=== PATIENT | female | born 1965 | race Caucasian/White ===

== ENCOUNTER 2021-08-08 18:20 | Emergency (ER) | payer SELFPAY ==
--- NOTE | 2021-08-08 19:19 | RAD REPORT ---
EXAM DESCRIPTION: RAD - Chest Single View - 08/08/2021 7:14 pm CLINICAL HISTORY: COUGH COMPARISON: None TECHNIQUE: AP portable chest image was obtained 08/08/2021 7:14 pm . FINDINGS: Lungs are clear. Heart and vasculature are normal. No measurable pleural effusion and no p neumothorax. No acute bony abnormality seen. No acute aortic findings suspected. IMPRESSION: No acute cardiopulmonary process.
--- NOTE | 2021-08-08 19:20 | RAD REPORT ---
EXAM DESCRIPTION: CT - Head Brain Wo Cont - 08/08/2021 7:07 pm CLINICAL HISTORY: DIZZINESS COMPARISON: No comparisons TECHNIQUE: Axial 5 mm thick images of the head were obtained without IV contrast. All CT scans are performed using dose optimization technique as appropriate and may include automated exposure control or mA/KV adjustment according to patient size. FINDINGS: No intracranial hemorrhage, mass, edema or shift of mid-line structures. No acute infarcti on changes seen. No abnormal extra-axial fluid collections. Ventricles are normal. Mastoid air cells and visualized portions of the paranasal sinuses are clear. No acute bony findings. IMPRESSION: Negative non-contrast CT head examination.
[2021-08-08 19:24] LABS: Protime INR 0.99
[2021-08-08 19:26] LABS: Absolute Lymphocytes (CBC) 3.1 K/uL (0.7-4.9); Basophils % 1.2 % (0-1.3); Hematocrit 39.7 % (36.0-45.0); Lymphocytes % 32.6 % (15.3-44.8); MPV 8.6 fL (7.6-11.3); RBC Red Blood Cell Count 4.53 M/uL (3.86-4.86)
[2021-08-08 19:46] LABS: Urine Blood Trace-intact (Negative); Urine Glucose Negative (Negative); Urine Protein Trace (Negative); Urine Specific Gravity >=1.030 (1.005-1.030)
[2021-08-08 19:53] LABS: Bicarbonate 26 mmol/L (21-32); Potassium 3.8 mmol/L (3.5-5.1); Sodium Level 143 mmol/L (136-145)
[2021-08-08 19:54] LABS: ALT/SGPT 27 U/L (12-78); AST/SGOT 12 U/L (15-37); Alkaline Phosphatase 103 U/L (45-117); BUN Blood Urea Nitrogen 18 mg/dL (7-18); Bilirubin Direct 0.3 mg/dL (0-0.2); Glucose Level 151 mg/dL (74-106)
[2021-08-08 19:55] LABS: Albumin 3.4 g/dL (3.4-5.0); Magnesium 2.3 mg/dL (1.8-2.4); NT PRO-BNP 58 pg/mL (<125)
[2021-08-08 20:07] LABS: Troponin (Emerg Dept Use Only) < 0.02 ng/mL (0.0-0.045)
[2021-08-08] MEDS ORDERED: ACETAMINOPHEN 500 MG TAB ONE (21:02)
[2021-08-08] MEDS ORDERED: NA CHLORIDE 0.9% 1,000 ML ONE (21:08)
[2021-08-08 21:35] LABS: Thyroid Stimulating Hormone 6.35 uIU/mL (0.360-3.740)
--- NOTE | 2021-08-08 22:12 | EDPHYS ---
Physician Documentation [facility] Name: Lexie Geiger Age: 56 yrs Sex: Female : 1965 Arrival Date: 08/08/2021 Time: 18:22 Bed 17 Private MD: ED Physician Tra Allen HPI: 08/08 18:48 This 56 yrs old Female presents to ER via Ambulatory with complaints of sachin Vision Problem. 18:48 The patient is experiencing blurred vision. Onset: The symptoms/episode began/occurred sachin 1 day(s) ago. Duration: the symptoms are continuous. Aggravated by nothing. Alleviated by nothing. Associated signs and symptoms: Pertinent positives: dizziness. The patient presents with dizziness. Context: occurred at home. Associated signs and symptoms: Pertinent positives: headache. Severity of symptoms: At their worst the symptoms were mild in the emergency department the symptoms are unchanged. 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 - Social history:: Smoking status: Patient denies any tobacco usage or history of. - Family history:: not pertinent. ROS: 18:48 Constitutional: Negative for fever, chills, and weight loss, ENT: Negative for injury, sachin pain, and discharge, Neck: Negative for injury, pain, and swelling, Cardiovascular: Negative for chest pain, palpitations, and edema, Respiratory: Negative for shortness of breath, cough, wheezing, and pleuritic chest pain, Abdomen/GI: Negative for abdominal pain, nausea, vomiting, diarrhea, and constipation, Back: Negative for injury and pain, : Negative for injury, bleeding, discharge, and swelling, MS/Extremity: Negative for injury and deformity, Skin: Negative for injury, rash, and discoloration, Psych: Negative for depression, anxiety, suicide ideation, homicidal ideation, and hallucinations, Allergy/Immunology: Negative for hives, rash, and allergies, Endocrine: Negative for neck swelling, polydipsia, polyuria, polyphagia, and marked weight changes, Hematologic/Lymphatic: Negative for swollen nodes, abnormal bleeding, and unusual bruising. 18:48 Eyes: Positive for visual disturbance. 18:48 Neuro: Positive for dizziness. Exam: 18:48 Constitutional: This is a well developed, well nourished patient who is awake, alert, sachin and in no acute distress. Head/Face: Normocephalic, atraumatic. Eyes: Pupils equal round and reactive to light, extra-ocular motions intact. Lids and lashes normal. Conjunctiva and sclera are non-icteric and not injected. Cornea within normal limits. Periorbital areas with no swelling, redness, or edema. ENT: Nares patent. No nasal discharge, no septal abnormalities noted. Tympanic membranes are normal and external auditory canals are clear. Oropharynx with no redness, swelling, or masses, exudates, or evidence of obstruction, uvula midline. Mucous membranes moist. Neck: Trachea midline, no thyromegaly or masses palpated, and no cervical lymphadenopathy. Supple, full range of motion without nuchal rigidity, or vertebral point tenderness. No Meningismus. Chest/axilla: Normal chest wall appearance and motion. Nontender with no deformity. No lesions are appreciated. Cardiovascular: Regular rate and rhythm with a normal S1 and S2. No gallops, murmurs, or rubs. Normal PMI, no JVD. No pulse deficits. Respiratory: Lungs have equal breath sounds bilaterally, clear to auscultation and percussion. No rales, rhonchi or wheezes noted. No increased work of breathing, no retractions or nasal flaring. Abdomen/GI: Soft, non-tender, with normal bowel sounds. No distension or tympany. No guarding or rebound. No evidence of tenderness throughout. Back: No spinal tenderness. No costovertebral tenderness. Full range of motion. Skin: Warm, dry with normal turgor. Normal color with no rashes, no lesions, and no evidence of cellulitis. MS/ Extremity: Pulses equal, no cyanosis. Neurovascular intact. Full, normal range of motion. Neuro: Awake and alert, GCS 15, oriented to person, place, time, and situation. Cranial nerves II-XII grossly intact. Motor strength 5/5 in all extremities. Sensory grossly intact. Cerebellar exam normal. Normal gait. Psych: Awake, alert, with orientation to person, place and time. Behavior, mood, and affect are within normal limits. 18:48 Musculoskeletal/extremity: DVT Exam: No signs of deep vein thrombosis. no pain, no swelling, no tenderness, negative Homans' sign noted on exam, no appreciated bluish discoloration, no erythema, no increased warmth. Vital Signs: 18:32 BP 155 / 92; Pulse 87; Resp 18; Temp 98.2; Pulse Ox 97% ; Height 5 ft. 7 in. (170.18 vg1 cm); Pain 0/10; NIH Stroke Scale Scores: 19:05 NIHSS Score: 0 sachin MDM: 18:41 Patient medically screened. sachin 18:52 Differential diagnosis: Corneal abrasion of Foreign body in. Differential diagnosis: sachin cardiac arrhythmia, generalized weakness, hypovolemia, idiopathic dizziness, near-syncope, sepsis, TIA, vertigo. Data reviewed: vital signs, nurses notes, lab test result(s), EKG, radiologic studies, CT scan, plain films. Data interpreted: environmental monitoring specialist: rate is 87 beats/min, rhythm is regular, Pulse oximetry: on room air is 97 %. Test interpretation: by ED physician or midlevel provider: ECG, plain radiologic studies. Counseling: I had a detailed discussion with the patient and/or guardian regarding: the historical points, exam findings, and any diagnostic results supporting the discharge/admit diagnosis, lab results, radiology results. 21:08 ED course: Patient reports that her blood sugars are typically within normal limits pm1 70-110. 160 is high for her. Patient reports improvement in symptoms with NS, will give the patient additional IV fluids. 22:09 Counseling: I had a detailed discussion with the patient and/or guardian regarding: the pm1 historical points, exam findings, and any diagnostic results supporting the discharge/admit diagnosis, lab results, radiology results, the need for outpatient follow up, a family practitioner, Further management of DM and hyperglycemia, to return to the emergency department if symptoms worsen or persist or if there are any questions or concerns that arise at home. 08/08 18:42 Order name: Glucose, Ancillary Testing; Complete Time: 18:46 EDMS 08/08 18:47 Order name: Basic Metabolic Panel [facility] 08/08 18:47 Order name: CBC with Diff; Complete Time: 20:57 [facility] 08/08 18:47 Order name: LFT's; Complete Time: 20:57 [facility] 08/08 18:47 Order name: Magnesium; Complete Time: 20:57 [facility] 08/08 18:47 Order name: NT PRO-BNP; Complete Time: 20:57 [facility] 08/08 18:47 Order name: PT-INR; Complete Time: 20:57 [facility] 08/08 18:47 Order name: Troponin (emerg Dept Use Only); Complete Time: 20:57 [facility] 08/08 18:47 Order name: Urine Culture [facility] 08/08 18:48 Order name: Basic Metabolic Panel; Complete Time: 20:57 EDMS 08/08 19:46 Order name: Urine Dipstick-Ancillary; Complete Time: 20:57 EDMS 08/08 21:06 Order name: TSH kc4 08/08 21:08 Order name: Thyroid Stimulating Hormone; Complete Time: 21:57 EDMS 08/08 21:30 Order name: Glucose, Ancillary Testing; Complete Time: 21:35 EDIN 08/08 18:47 Order name: XRAY Chest (1 view); Complete Time: 20:57 [facility] 08/08 18:47 Order name: EKG; Complete Time: 18:48 [facility] 08/08 18:47 Order name: Cardiac monitoring; Complete Time: 19:26 [facility] 08/08 18:47 Order name: EKG - Nurse/Tech; Complete Time: 19:26 [facility] 08/08 18:47 Order name: IV Saline Lock; Complete Time: 18:53 [facility] 08/08 18:47 Order name: Labs collected and sent; Complete Time: 18:53 [facility] 08/08 18:47 Order name: O2 Per Protocol; Complete Time: 18:53 [facility] 08/08 18:47 Order name: O2 Sat Monitoring; Complete Time: 18:53 [facility] 08/08 18:47 Order name: CT Head Brain wo Cont; Complete Time: 20:57 [facility] 08/08 18:47 Order name: Urine Dipstick-Ancillary (obtain specimen); Complete Time: 20:01 [facility] 08/08 21:36 Order name: T4 Free; Complete Time: 21:57 EDMS Administered Medications: 19:39 Drug: NS 0.9% 1000 ml Route: IV; Rate: 1 bolus; Site: left antecubital; kc4 22:50 Follow up: IV Status: Completed infusion kc4 22:50 Follow up: Response: No adverse reaction kc4 21:03 Drug: Tylenol 1000 mg Route: PO; kc4 22:49 Follow up: Response: No adverse reaction kc4 21:15 Drug: NS 0.9% 1000 ml Route: IV; Rate: 1 bolus; Site: right antecubital; kc4 22:49 Follow up: IV Status: Completed infusion kc4 Disposition: 08/09 03:44 Co-signature as Attending Physician, Tra Allen MD I agree with the assessment and sachin plan of care. Disposition Summary: 08/08/21 22:10 Discharge Ordered Location: Home pm1 Problem: new pm1 Symptoms: have improved pm1 Condition: Stable pm1 Diagnosis - Hyperglycemia, unspecified pm1 Followup: pm1 - With: Emergency Department - When: As needed - Reason: Worsening of condition Followup: pm1 - With: Private Physician - When: 2 - 3 days - Reason: Recheck today's complaints, Continuance of care, Re-evaluation by your physician Discharge Instructions: - Discharge Summary Sheet pm1 - Hyperglycemia pm1 - Blood Glucose Monitoring, Adult pm1 - Diabetes Mellitus and Exercise pm1 - Diabetes Mellitus and Nutrition, Adult pm1 Forms: - Medication Reconciliation Form pm1 - Thank You Letter pm1 - Antibiotic Education pm1 - Prescription Opioid Use pm1 NIH Stroke Scale - NIH Stroke Score Date: 08/08/2021 Time: 19:05 Total Score = 0 1a. Level of Consciousness (LOC) - 0(Alert) 1b. Level of Consciousness (LOC) (Month \T\ Age) - 0(Both) 1c. LOC Commands (Open \T\ Closes Eyes/Oxidation Operator) - 0(Both) 2. Best Gaze (Lateral Gaze Paresis) - 0(Normal) 3. Visual Field Loss - 0(No visual loss) 4. Facial Palsy - 0(Normal) 5a. Left Arm: Motor (10-second hold) - 0(No drift) 5b. Right Arm: Motor (10-second hold) - 0(No drift) 6a. Left Leg: Motor (5-second hold - always test supine) - 0(No drift) 6b. Right Leg: Motor (5-second hold - always test supine) - 0(No drift) 7. Limb Ataxia (finger/nose \T\ heel/andrade - test with eyes open) - 0(Absent) 8. Sensory Loss (pinprick arms/legs/face) - 0(Normal) 9. Best Language: Aphasia (description/naming/reading) - 0(No aphasia) 10. Dysarthria (speech clarity - read or repeat words) - 0(Normal) 11. Extinction and Inattention (visual/tactile/auditory/spatial/personal) - 0(No abnormality) Initials: [facility] Signatures: Dispatcher [employer] EDMS Tra Allen MD MD cha Attema, Lee, REGISTERED MEDICAL TRANSCRIPTIONIST-C REGISTERED MEDICAL TRANSCRIPTIONIST-Cla1 Irving Collado, SANITATION TRUCK CLEANER SANITATION TRUCK CLEANER pm1 Amelie Mace, RN RN vg1 Stephany Fabian kc4
--- NOTE | 2021-08-08 22:12 | ER ---
Nurse's Notes [facility] Name: Lexie Geiger Age: 56 yrs Sex: Female : 1965 Arrival Date: 08/08/2021 Time: 18:22 Bed 17 Private MD: Diagnosis: Hyperglycemia, unspecified Presentation: 08/08 18:32 Chief complaint: Patient states: Pt has been feeling dizzy with blurred vision for a vg1 day; states blurred vision even with glasses on. States is on Lantus and last dose was yesterday morning. Was unable to get medication refilled due to doctor approval. Denies headache, nausea or vomiting. Coronavirus screen: Vaccine status: Patient reports being unvaccinated. Client denies travel out of the [place] in the last 14 days. Ebola Screen: Patient negative for fever greater than or equal to 101.5 degrees Fahrenheit, and additional compatible Ebola Virus Disease symptoms. Initial Sepsis Screen: Does the patient meet any 2 criteria? No. Patient's initial sepsis screen is negative. Does the patient have a suspected source of infection? No. Patient's initial sepsis screen is negative. Risk Assessment: Do you want to hurt yourself or someone else? Patient reports no desire to harm self or others. Onset of symptoms was August 07, 2021. 18:32 Method Of Arrival: Ambulatory vg1 18:32 Acuity: FELICITY 3 vg1 Triage Assessment: 18:38 General: Appears in no apparent distress. uncomfortable, Behavior is calm, cooperative. vg1 Pain: Denies pain. 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 - Social history:: Smoking status: Patient denies any tobacco usage or history of. - Family history:: not pertinent. Screenin:42 Abuse screen: Denies threats or abuse. Nutritional screening: No deficits noted. ll1 Tuberculosis screening: No symptoms or risk factors identified. 19:02 Fall Risk IV access (20 points). Total Yancey Fall Scale indicates No Risk (0-24 pts). ll1 Assessment: 18:39 Reassessment: FS 160 mg/dL. vg1 22:44 General: Appears in no apparent distress. comfortable, Behavior is calm, cooperative, kc4 appropriate for age, Reports fatigue for 0-12 hours, Denies. Pain: Denies pain. Neuro: Level of Consciousness is awake, alert, obeys commands, confused, Oriented to person, place, time, situation, Appropriate for age [employer] are equal bilaterally Moves all extremities. Gait is steady, Speech is normal, Facial symmetry appears normal, Pupils are PERRLA, Intact. Cardiovascular: No deficits noted. Respiratory: No deficits noted. GI: No deficits noted. No signs and/or symptoms were reported involving the gastrointestinal system. : No deficits noted. No signs and/or symptoms were reported regarding the genitourinary system. EENT: Eyes blurry vision . Reports blurred vision in iris of right eye and iris of left eye Denies pain. Derm: No deficits noted. No signs and/or symptoms reported regarding the dermatologic system. Musculoskeletal: No deficits noted. No signs and/or symptoms reported regarding the musculoskeletal system. Vital Signs: 18:32 BP 155 / 92; Pulse 87; Resp 18; Temp 98.2; Pulse Ox 97% ; Height 5 ft. 7 in. (170.18 vg1 cm); Pain 0/10; NIH Stroke Scale Scores: 19:05 NIHSS Score: 0 [facility] ED Course: 18:22 Patient arrived in ED. am2 18:35 Triage completed. vg1 18:38 Arm band placed on. vg1 18:41 Judson Miles, RANI is Primary Nurse. ll1 18:41 Tra Allen MD is Attending Physician. [facility] 18:42 Patient placed in an exam room, on a stretcher. ll1 18:42 Patient has correct armband on for positive identification. Bed in low position. Call ll1 light in reach. Pulse ox on. NIBP on. 19:02 Inserted saline lock: 22 gauge in left antecubital area, using aseptic technique. Blood ll1 collected. 19:08 CT Head Brain wo Cont In Process Unspecified. EDMS 19:13 XRAY Chest (1 view) In Process Unspecified. EDMS 20:01 Urine Culture Sent. kc4 20:01 Basic Metabolic Panel Sent. kc4 21:54 TSH Sent. kc4 22:48 No provider procedures requiring assistance completed. IV discontinued, intact, kc4 bleeding controlled, No redness/swelling at site. Pressure dressing applied. Administered Medications: 19:39 Drug: NS 0.9% 1000 ml Route: IV; Rate: 1 bolus; Site: left antecubital; kc4 22:50 Follow up: IV Status: Completed infusion kc4 22:50 Follow up: Response: No adverse reaction kc4 21:03 Drug: Tylenol 1000 mg Route: PO; kc4 22:49 Follow up: Response: No adverse reaction kc4 21:15 Drug: NS 0.9% 1000 ml Route: IV; Rate: 1 bolus; Site: right antecubital; kc4 22:49 Follow up: IV Status: Completed infusion kc4 Outcome: 22:10 Discharge ordered by MD. pm1 22:48 Discharged to home ambulatory, with family. kc4 22:48 Condition: improved 22:48 Discharge instructions given to patient, Instructed on discharge instructions, follow up and referral plans. Demonstrated understanding of instructions, follow-up care. 22:51 Patient left the ED. kc4 NIH Stroke Scale - NIH Stroke Score Date: 08/08/2021 Time: 19:05 Total Score = 0 1a. Level of Consciousness (LOC) - 0(Alert) 1b. Level of Consciousness (LOC) (Month \T\ Age) - 0(Both) 1c. LOC Commands (Open \T\ Closes Eyes/Auto Tech) - 0(Both) 2. Best Gaze (Lateral Gaze Paresis) - 0(Normal) 3. Visual Field Loss - 0(No visual loss) 4. Facial Palsy - 0(Normal) 5a. Left Arm: Motor (10-second hold) - 0(No drift) 5b. Right Arm: Motor (10-second hold) - 0(No drift) 6a. Left Leg: Motor (5-second hold - always test supine) - 0(No drift) 6b. Right Leg: Motor (5-second hold - always test supine) - 0(No drift) 7. Limb Ataxia (finger/nose \T\ heel/andrade - test with eyes open) - 0(Absent) 8. Sensory Loss (pinprick arms/legs/face) - 0(Normal) 9. Best Language: Aphasia (description/naming/reading) - 0(No aphasia) 10. Dysarthria (speech clarity - read or repeat words) - 0(Normal) 11. Extinction and Inattention (visual/tactile/auditory/spatial/personal) - 0(No abnormality) Initials: sachin Signatures: Dispatcher [employer] EDTra Pineda MD MD cha Marinas, Patrick, MACHELLE CERTIFIED TUMOR REGISTRAR pm1 Amy Bliss am2 Amelie Mace, RN RN vg1 Judson Miles RN RN ll1 Stephany Fabian kc4
[2021-08-08 23:05] VITALS: BP 155/92; TEMP 98.2; O2SAT 97
== END 2021-08-08 22:51 | disposition home or self-care (01) ==
LOC: ER 18:20
DX: E11.65 Type 2 diabetes mellitus with hyperglycemia (principal); Z79.4 Long term (current) use of insulin; Z88.6 Allergy status to analgesic agent; Z91.018 Allergy to other foods; R29.700 NIHSS score 0
CPT/HCPCS: 36415; 70450; 71045; 80048; 80076; 81003; 82947; 83735; 83880; 84439; 84443; 84484; 85025; 85610; 87086; 87088; 93005; 96360; 96361; 99284; J7030